=== PATIENT | female | born 1960 | race Caucasian/White ===

== ENCOUNTER 2020-12-23 10:24 | Emergency (ER) | payer OTHER ==
[~2020-12-23] VITALS: Ht 157.5 cm; Wt 61.0 kg
[2020-12-23 10:25] VITALS: BP 160/101
[2020-12-23] MEDS ORDERED: FLUORESCEIN OPHTHALMIC 1 MG STRIP ONE ×2 (11:27→11:40)
[2020-12-23] MEDS ORDERED: PROPARACAINE OPHTH 0.5%, 15ML ONE (11:40)
[2020-12-23] MEDS ORDERED: FLUORESCEIN OPHTHALMIC 1 MG STRIP EACHEYE ONE (12:00)
[2020-12-23] MEDS ORDERED: PROPARACAINE OPHTH 0.5%, 15ML EACHEYE ONE (12:00)
== END 2020-12-23 12:17 | disposition home or self-care (01) ==
LOC: ED 10:55
DX: H10.211 Acute toxic conjunctivitis, right eye (principal)
CPT/HCPCS: 99283